=== PATIENT | male | born 1985 | race Caucasian/White ===

== ENCOUNTER → 2017-02-04 | Outpatient (CLI) | payer BC ==
[~2017-02-04] MED LIST: AMITRYPTYLINE; BACTRIM 400-801 TA1 PO; CYMBALTA PO; EFFEXOR75 M2 PO; FLEXERIL10 MG PO; HYDROCODON-ACE1 EAC9 PO; IBUPROFEN800 MG PO; KEFLEX500 MG PO; LIPITOR; NAPROXEN250 MG PO; OTC ALLERGY MEDS; VOLTAREN50 MG PO
--- NOTE | ~2017-02-04 | MY6 ---
[facility] A Service of [facility] & [facility] RADIOLOGY TEXT RESULTS PATIENT: YOSELIN CHACON LOCATION: [facility] : 87 UNIT #: [id number] AGE: [address]: Chaitanya Moran MD SEX: M ORDER DR: [id number] [facility] [address] [place], [place] [address] [id number] O MR#: [id number] Acc #: [id number] NAME: YOSELIN CHACON : 1985 SEX: M STUDY DATE/TIME: 02/04/2017 8:46 UNIT: [facility] ROOM: STUDY DESCRIPTION: MY Mammogram Dx Dig Marc Attending Physician: Chaitanya Moran M.D. Referring Physician: Chaitanya Moran M.D. Ordering Physician: Chaitanya Moran M.D. Primary Care Physician: Chaitanya Moran M.D. MEDICAL IMAGING REPORT This report is preliminary unless electronic signature is present EXAM 31-year-old male complaining of a nipple mass. Lump associated with the nipple on the right for 2 weeks. No personal or family history of breast cancer. No surgeries. TECHNIQUE CC and MLO views of the right breast along with and MLO view of the left breast were obtained and reviewed with an FDA approved CAD device. There are no comparisons. FINDINGS A marker overlies the area palpable concern on the right. This localizes just lateral and superior to the nipple. Deep to the right nipple, there is some subtle asymmetrically prominent fibroglandular tissue in a flame shaped configuration that fades peripherally from the nipple into the adjacent breast tissue. The appearance is most characteristic of benign unilateral gynecomastia. Soft tissue prominence associated with both nipples bilaterally is symmetric. No suspicious nodule, mass, adenopathy or calcifications identified. Absent new or worsening symptoms in either breast, clinical consideration should determine additional imaging at this time. Base of classic mammographic features ultrasound was not thought to offer additional diagnostic benefit. It therefore was not performed. Findings and recommendations were discussed in detail with the patient in the department. He was encouraged to return for additional imaging if his symptoms worsen or do not improve. He has voiced understanding and agreement. IMPRESSION 1. Imaging findings most characteristic of unilateral benign STS. [facility] A Service of [facility] RADIOLOGY TEXT RESULTS PATIENT: YOSELIN CHACON LOCATION: [facility] : 87 UNIT #: [id number] AGE: [address]: Chaitanya Moran MD SEX: M ORDER DR: gynecomastia on the right. Clinical considerations to determine additional imaging at this time. Findings and recommendations were discussed with the patient. See discussion above. BIRADS: 2 - benign findings Dictated by... Rohit Andre M.D. THIS IS AN ELECTRONICALLY VERIFIED REPORT Rohit Andre M.D. at 02/04/2017 3:13 PM Rebecca TD: 02/04/2017 14:27 JOB #: [id number] MEDICAL IMAGING REPORT Page 1 of 1 COPY
== END | disposition home or self-care (01) ==
LOC: CMAM 08:12
DX: N64.89 Other specified disorders of breast (principal)
CPT/HCPCS: G0204

== ENCOUNTER → 2017-04-14 | Outpatient (CLI) | payer BC ==
--- NOTE | ~2017-04-14 | US6 ---
[facility] A Service of [facility] & [facility] RADIOLOGY TEXT RESULTS PATIENT: YOSELIN CHACON LOCATION: [facility] : 89 UNIT #: [id number] AGE: [address]: Chaitanya Moran MD SEX: M ORDER DR: [id number] [address] [address] [id number] O MR#: [id number] Acc #: [id number] NAME: YOSELIN CHACON : 1985 SEX: M STUDY DATE/TIME: 04/14/2017 8:01 UNIT: [facility] ROOM: STUDY DESCRIPTION: US Abdominal Limited Attending Physician: Chaitanya Moran M.D. Referring Physician: Chaitanya Moran M.D. Ordering Physician: Chaitanya Moran M.D. Primary Care Physician: Chaitanya Moran M.D. MEDICAL IMAGING REPORT This report is preliminary unless electronic signature is present. EXAM Right upper quadrant abdominal ultrasound, 04/14/2017 HISTORY Right upper quadrant abdominal pain for 1 month. Nausea for 2 weeks. The patient states no prior abdominal surgeries. COMPARISON Right upper quadrant abdominal ultrasound, 08/17/2014 FINDINGS Portions of the pancreas are obscured by bowel gas but the visualized pancreas appears normal. There is a markedly coarsened echotexture with diminished through transmission within the liver parenchyma, which may reflect changes of hepatic steatosis in the appropriate clinical context. Similar features were present on the 2013 examination, as well. This limits evaluation for focal liver lesion, although no focal lesion is seen. Liver size is within normal limits, 17.4 cm in the sagittal plane. No ascites is evident. Main portal vein is patent. Intrahepatic IVC is very poorly visualized. The right kidney measures 12.6 cm in length without focal cortical lesion, shadowing stone or hydronephrosis. Gallbladder is partially contracted but no definite gallstones or pericholecystic fluid is seen and the gallbladder wall thickness is within normal limits, 2.0 mm. Common bile duct is not satisfactorily visualized on this examination. No definite intrahepatic biliary ductal dilation is seen. IMPRESSION 1. Markedly coarsened hepatic echotexture is nonspecific but may represent changes of diffuse hepatic steatosis. Similar features were present on the 2014 examination. 2. The common bile duct cannot be satisfactorily visualized on today's [facility] A Service of [facility] & [facility] RADIOLOGY TEXT RESULTS PATIENT: YOSELIN CHACON LOCATION: [facility] : 89 UNIT #: [id number] AGE: [address]: Chaitanya Moran MD SEX: M ORDER DR: examination. However, no intrahepatic biliary ductal dilation is seen and the gallbladder appears within normal limits. 3. Remainder of the examination is within normal limits. Dictated by... Gris Curtis M.D. THIS IS AN ELECTRONICALLY VERIFIED REPORT Gris Curtis M.D. at 04/14/2017 5:00 PM Wesley TD: 04/14/2017 11:47 JOB #: [id number] MEDICAL IMAGING REPORT Page 1 of 1
== END | disposition home or self-care (01) ==
LOC: SGUS 07:53
DX: R10.11 Right upper quadrant pain (principal); R93.2 Abnormal findings on diagnostic imaging of liver and biliary tract
CPT/HCPCS: 76705

== ENCOUNTER → 2017-04-24 | Outpatient (CLI) | payer BC ==
--- NOTE | ~2017-04-24 | NM22 ---
[facility] A Service of [facility] & [facility] RADIOLOGY TEXT RESULTS PATIENT: YOSELIN CHACON LOCATION: [facility] : 87 UNIT #: [id number] AGE: [address]: Chaitanya Moran MD SEX: M ORDER DR: [id number] [place] [id number] [facility]. [place], [place] [address] [id number] O MR#: [id number] [facility] #: [id number] NAME: YOSELIN CHACON. : 1985 SEX: M STUDY DATE/TIME: 04/24/2017 9:04 UNIT: [facility] ROOM: STUDY DESCRIPTION: YAW Hepatobiliary W GB Pharm Attending Physician: Chaitanya Moran M.D. Ordering Physician: Chaitanya Moran M.D. Primary Care Physician: Chaitanya Moran M.D. MEDICAL IMAGING REPORT This report is preliminary unless electronic signature is present EXAM Radionuclide biliary scan, 04/24/17. HISTORY Pain. Stomach pain after meals. Right upper quadrant pain, gas, bloating, nausea, dry heaves, history of reflux and no known trauma. Symptoms for 2 months. TECHNIQUE Following intravenous administration of 5.41 mCi technetium-99m Choletec, static images of the abdomen were obtained at 15-minute intervals over 60 minutes. The patient then received 2.3 mcg Kinevac by 30-minute intravenous infusion. Images obtained before and after infusion. Region of interest drawn around gallbladder. Gallbladder ejection fraction calculated. FINDINGS There is homogeneous distribution of radiotracer throughout the liver at 15 minutes post-administration. During the initial hour of the examination, radiotracer accumulates in the gallbladder. Common bile duct suggested at 15 minutes post-administration. Small bowel not clearly seen during the initial hour of the study. With Kinevac infusion, the 30-minute gallbladder ejection fraction is 87.2%. Normal is greater than or equal to 30%. IMPRESSION 1. There is no evidence of cystic duct obstruction or acute cholecystitis. 2. 30-minute Kinevac-stimulated gallbladder ejection fraction is 87.2%. Normal is greater than or equal to 30%. [facility] A Service of [facility] & [facility] RADIOLOGY TEXT RESULTS PATIENT: [facility]OSELIN CHACON [id number] [birth year] UNIT #: [id number] AGE: [address]: Chaitanya Moran MD SEX: M ORDER DR: Dictated by... Jet Richardson M.D. THIS IS AN ELECTRONICALLY VERIFIED REPORT Jet Richardson M.D. at 04/27/2017 8:13 AM CHRISTIAN/ramonita TD: 04/24/2017 19:30 JOB #: [id number] MEDICAL IMAGING REPORT Page 1 of 1 COPY
== END | disposition home or self-care (01) ==
LOC: CNUC 08:00
DX: R10.11 Right upper quadrant pain (principal)
CPT/HCPCS: 78227; A9537; J2805

== ENCOUNTER 2017-06-16 21:01 | Observation (INO) | payer BC ==
[~2017-06-16] VITALS: Ht 177.8 cm; Wt 107.2 kg
--- NOTE | ~2017-06-16 | CO ---
Unit #: [id number] #: [id number] Patient: YOSELIN CHACON [id number] [address] [place], [place] [address] [id number] I MR#: [id number] NAME: YOSELIN CHACON. ROOM: 552 Age: 32 Sex: M Admission Date: 06/16/2017 : 1985 Attending Physician: Michael George M.D. Primary Care Physician: Chaitanya Moran M.D. Consultation Date: 06/17/2017 CONSULTATION REPORT BRIEF HISTORY The patient is a 32-year-old gentleman presents with acute onset of periumbilical, now right lower quadrant abdominal pain. Some nausea. No vomiting. No diarrhea. No change in bowel habits. No history of similar type pain. PAST MEDICAL HISTORY She has had bilateral inguinal hernia surgery. MEDICATIONS Lipitor, amitriptyline, Naprosyn, Flexeril. SOCIAL HISTORY Does drink routinely. No smoking. FAMILY HISTORY Negative for GI malignancy. REVIEW OF SYSTEMS No cardiopulmonary complaints at this time. Else, 10 systems reviewed negative. PHYSICAL EXAMINATION GENERAL: He is awake, alert, appropriate, currently afebrile. HEENT: Unremarkable. NECK: Supple. No JVD. Trachea midline. LUNGS: Clear to auscultation. Bilateral breath sounds symmetric. CARDIOVASCULAR: Regular rate and rhythm. ABDOMEN: Soft. There is point tenderness at the right lower quadrant. No rebound. No masses. No hernias. EXTREMITIES: No clubbing, cyanosis, or edema. DIAGNOSTIC STUDIES LABORATORY RESULTS: White count 14. Chemistries are normal. IMAGING STUDIES: CT scan shows periappendiceal inflammation. ASSESSMENT Appendicitis. PLAN Recommend IV fluids, antibiotics, and laparoscopic appendectomy. Discussed in detail. Unit #: [id number] #: [id number] Patient: YOSELIN CHACON Dictated by... El Blount/goran TD: 06/17/2017 06:34 JOB #: [id number] CONSULTATION REPORT Page 1 of 1 X Jet Watson MD X CONSULTATION REPORT
--- NOTE | ~2017-06-16 | OR ---
Unit #: [id number] #: [id number] Patient: YOSELIN CHACON [id number] [address] [address] [id number] Roger MR#: [id number] NAME: YOSELIN CHACON ROOM: 55 Date of Procedure: 06/16/2017 Admission Date: 06/16/2017 Surgeon: Jet Watson M.D. : 1985 Attending Physician: Michael George M.D. Referring Physician: Chaitanya Moran M.D. Primary Care Physician: Chaitanya Moran M.D. OPERATIVE REPORT PREOPERATIVE DIAGNOSIS Appendicitis. POSTOPERATIVE DIAGNOSIS Appendicitis. PROCEDURE PERFORMED Laparoscopic appendectomy. OPTIMIZATION SPECIALIST None. ANESTHESIA General anesthesia. ESTIMATED BLOOD LOSS Minimal. IV FLUIDS 500 crystalloid. COMPLICATIONS None. INDICATIONS FOR PROCEDURE The patient is a 32-year-old with a right lower quadrant abdominal pain. Physical examination as well as radiographic evidence are suggestive of appendicitis. DESCRIPTION OF PROCEDURE The patient was taken to the operating theater and placed in supine position. General anesthesia was induced. The abdomen was prepped and draped. Infraumbilical incision was then made. A Veress needle was placed intra-abdominally. The abdomen was insufflated to 15 mmHg with CO2. Under direct vision, I placed a 5-mm port at the umbilicus. The patient was placed in Trendelenburg. I identified acute appendicitis nonperforated. I placed a right lower quadrant 10 mm port and left lower quadrant 5 mm port. I then mobilized the cecum using the Bovie electrocautery. I fired a KRISTIAN stapler across the base of the appendix inclusive of the mesoappendix. There was some hemorrhage afterwards which was controlled with added richardson. Hemostasis was adequate. I placed the appendix in an Endobag and removed via the 10 mm port. The ports were Unit #: [id number] #: [id number] Patient: YOSELIN CHACON removed and the fascia closed with 0 Vicryl and skin with 4-0 Vicryl. The patient tolerated the procedure well and sent to recovery room in good condition. Dictated by... El Blount/goran TD: 06/17/2017 12:57 JOB #: [id number] OPERATIVE REPORT Page 1 of 1 X Jet Watson MD PROCEDURE OPERATIVE NOTE
--- NOTE | ~2017-06-16 | CT2 ---
[facility] A Service of [facility] & [facility] RADIOLOGY TEXT RESULTS PATIENT: YOSELIN CHACON LOCATION: [place] [address] : [birth year] UNIT #: [id number] AGE: [address]: Michael George SEX: M ORDER DR: [id number] [facility] [address] [place], [place] [address] [id number] I MR#: [id number] Acc #: [id number] NAME: YOSELIN CHACON. : 1985 SEX: M STUDY DATE/TIME: 06/16/2017 22:44 UNIT: [facility] ROOM: [id number] STUDY DESCRIPTION: CT Abd and Pelv W Cont Attending Physician: Michael George M.D. Referring Physician: Chaitanya Moran M.D. Ordering Physician: Maik Manrique M.D. Primary Care Physician: Chaitanya Moran M.D. MEDICAL IMAGING REPORT This report is preliminary unless electronic signature is present EXAMINATION CT abdomen and pelvis without contrast. DATE 06/16/2017 at 22:44. HISTORY Abdominal pain, vomiting, nausea and right lower quadrant pain today. COMPARISON CT of abdomen and pelvis without contrast, 03/14/2006. PROCEDURE 5 mm axial images from the lung bases through the lesser trochanters after intravenous contrast administration. Enteric contrast was not administered. Sagittal and coronal reformatted images were obtained. This CT exam was performed with one or more of the following radiation dose reduction techniques: automatic exposure control, adjustment of mA and/or kV according to patient size, and iterative reconstruction. FINDINGS ABDOMEN FINDINGS: The appendix is abnormally thickened with mucosal hyperenhancement and subtle reticular stranding. Findings are consistent with acute appendicitis. No evidence of periappendiceal abscess or perforation. Remainder of the bowel appears grossly nonthickened and noninflamed. No free air or free fluid. Lung bases are clear. Liver, gallbladder, spleen, pancreas, adrenals and kidneys are within normal limits. PELVIS FINDINGS: Urinary bladder, prostate and rectum are normal. Small left inguinal hernia contains only fat. No free fluid. Moderately advanced diminished disc height at L5-S1 with vacuum disc STS. [facility] A Service of [facility] & [facility] RADIOLOGY TEXT RESULTS PATIENT: YOSELIN CHACON LOCATION: [place] [address] : [birth year] UNIT #: [id number] AGE: [address]: Michael George SEX: M ORDER DR: asiya. There is grade 1 anterolisthesis L5 upon S1 secondary to bilaterally L5 pars interarticularis defects. IMPRESSION 1. Findings consistent with acute appendicitis. The results were called to the [facility] emergency room at the time of this dictation. There is no evidence of perforation or abscess. 2. Bilateral L5 pars interarticularis defects with grade 1 anterolisthesis of L5 upon S1 and moderately advanced loss of disc height at L5-S1. Dictated by... Gris Curtis M.D. THIS IS AN ELECTRONICALLY VERIFIED REPORT Gris Curtis M.D. at 06/17/2017 9:56 PM YAMILA/ramonita TD: 06/17/2017 00:17 JOB #: [id number] MEDICAL IMAGING REPORT Page 1 of 1 COPY
[~2017-06-16 21:01] MED LIST changes: -EFFEXOR75 M2 PO; -HYDROCODON-ACE1 EAC9 PO
[2017-06-16 21:47] LABS: BASOPHIL% 0.3 % (0-2.5); EOSINOPHIL# 0.2 X10e3 (0-0.7); EOSINOPHIL% 1.2 % (0.0-7.0); HEMATOCRIT 44.6 % (38.0-50.0); HEMOGLOBIN 14.9 gm/dL (13.0-16.0); LYMPHOCYTE# 2.3 X10e3 (1.0-3.5); LYMPHOCYTE% 16.6 % (17.0-45.0); MEAN CORPUSCULAR HEMOGLOBIN 29.2 PG (28-34); MEAN CORPUSCULAR HGB CONC 33.5 g/dL (30-36); MONOCYTE# 1.2 X10e3 (0-1.0); MONOCYTE% 8.3 % (3.0-12.0); NEUTROPHIL# 10.3 X10e3 (1.5-7.1); NEUTROPHIL% 73.6 % (40-75); PLATELET COUNT 295 X10e3 (140-420); RED BLOOD COUNT 5.12 X10e (3.90-5.60); RED CELL DISTRIBUTION WIDTH 13.3 % (11.0-15.5)
[2017-06-16 21:48] LABS: DIFF IND NO
[2017-06-16 21:51] LABS: URINE SOURCE CLEAN CATCH
[2017-06-16 21:57] LABS: URINE APPEARANCE CLEAR; URINE BILIRUBIN NEG (NEG); URINE BLOOD NEG (NEG); URINE COLOR YELLOW; URINE GLUCOSE NEG (NEG); URINE KETONE NEG (NEG); URINE LEUKOCYTE ESTERASE NEG (NEG); URINE NITRATE NEG (NEG); URINE PROTEIN NEG (NEG); URINE SPECIFIC GRAVITY 1.025 (1.003-1.035)
[2017-06-16 22:01] LABS: CULTURE INDICATED? NO
[2017-06-16 22:07] LABS: POC - CKMB 1.4 ng/mL (0.0-7.9); POC - TROPONIN <0.05 ng/mL (<=0.05)
[2017-06-16 22:17] LABS: ALBUMIN SERUM 4.6 g/dL (3.5-5.0); BILIRUBIN, DIRECT 0.1 mg/dL (0.0-0.2); BILIRUBIN,INDIRECT 0.3 mg/dL (0.0-0.9); BILIRUBIN,TOTAL 0.4 mg/dL (0.2-2.0); BUN/CREATININE RATIO 12.22; CALCIUM SERUM 9.6 mg/dL (8.4-10.2); CREATININE SERUM 0.9 mg/dL (0.6-1.4); GLOM FILT RATE Estimated 114.2 mL/min (>60); POTASSIUM 4.1 mmol/L (3.5-5.1); PROTEIN TOTAL SERUM 7.8 g/dL (6.0-8.3)
[2017-06-17] MEDS ORDERED: EFFEXOR75 M2 PO (02:22)
[2017-06-17] MEDS ORDERED: HYDROCODON-ACE1 EAC9 PO (12:46)
== END 2017-06-17 13:00 | disposition home or self-care (01) | DRG 373 ==
LOC: CED 21:01 → C5B 23:40 → CEDOF 23:40 → CED 23:49 → CEDOF 06-17 01:27 → C5B 06-17 01:27
PROVIDERS: Emergency Medicine; Student in an Organized Health Care Education/Training Program
DX: K35.3 Acute appendicitis with localized peritonitis (principal); K21.9 Gastro-esophageal reflux disease without esophagitis; E78.5 Hyperlipidemia, unspecified; G47.30 Sleep apnea, unspecified; Z79.899 Other long term (current) drug therapy; Z98.890 Other specified postprocedural states
CPT/HCPCS: 36415; 74177; 80048; 80076; 81003; 82150; 82553; 83690; 84484; 85025; 88304; 96361; 96365; 96375; 96376; 99285; G0378; J0330; J1100; J1885; J2250; J2270; J2405; J2543; J3010; Q9967